=== PATIENT | male | born 1995 | race Caucasian/White ===

== ENCOUNTER 2019-09-05 00:39 | Inpatient (IN) | payer BC, OTHER ==
[~2019-09-05] VITALS: Ht 177.8 cm; Wt 95.3 kg
[2019-09-05 01:22] LABS: BASOPHILS % (AUTO) 0.3 % (0.0-2.0); EOSINOPHILS # (AUTO) 0.3 K/uL (0.0-0.7); EOSINOPHILS % (AUTO) 3.5 % (0.0-7.0); HEMATOCRIT 42.4 % (36.7-47.1); HEMOGLOBIN 14.7 g/dL (12.5-16.3); LYMPHOCYTES % (AUTO) 25.1 % (20.5-51.5); MEAN CORPUSCULAR HEMOGLOBIN 30.9 uug (23.8-33.4); MEAN CORPUSCULAR HGB CONC 35 g/dL (32.5-36.3); MEAN CORPUSCULAR VOLUME 89.1 fL (73.0-96.2); MONOCYTES # (AUTO) 0.7 K/uL (2.0-10.0); MONOCYTES % (AUTO) 8.3 % (0.0-11.0); NEUTROPHILS # (AUTO) 5.1 K/uL (1.8-8.9); NEUTROPHILS % (AUTO) 62.8 % (38.5-71.5); PLATELET COUNT (AUTO) 262 K/uL (152-348); RED BLOOD CELL COUNT(AUTO) 4.75 MIL/uL (4.06-5.63); WHITE BLOOD COUNT (AUTO) 8.1 K/uL (3.6-10.2)
[2019-09-05 01:26] LABS: CARBON DIOXIDE 31 mmol/L (21-32); CHLORIDE 105 mmol/L (98-107); CREATININE 0.9 mg/dL (0.6-1.3); GLUCOSE 96 mg/dL (74-106); POTASSIUM 3.9 mmol/L (3.5-5.1); UREA NITROGEN, BLOOD 12 mg/dL (7-18)
[2019-09-05] MEDS ORDERED: IOHEXOL 300MG/ML 100 ML INFUS..BTL ONE (01:28)
[2019-09-05] MEDS ORDERED: IV NORMAL SALINE 250 ML IV ONE (01:28)
[2019-09-05] MEDS ORDERED: SWABABLE VALVE TRANSFER SET EA MC ONE (01:28)
[2019-09-05 01:33] LABS: ALANINE AMINOTRANSFERASE 28 U/L (16-63); ALKALINE PHOSPHATASE 144 U/L (50-136); ASPARTATE AMINOTRANSFERASE 13 U/L (15-37); BILIRUBIN,TOTAL 0.5 mg/dL (0.2-1.0); LIPASE 95 U/L (73-393); TOTAL PROTEIN, SERUM 7.1 g/dL (6.4-8.2)
[2019-09-05 01:35] LABS: BILIRUBIN,DIRECT < 0.1 mg/dL (0.0-0.2)
[2019-09-05] MEDS ORDERED: SULFAMETH/TRIMETH 800/160 MG TABLET ONE (02:22)
[2019-09-05] MEDS ORDERED: CEFAZOLIN 1 G VIAL ONE (02:22)
[2019-09-05] MEDS ORDERED: CEFAZOLIN 2 G in IV DEXTROSE 5% 100 ML IV ONE (02:30)
[2019-09-05] MEDS ORDERED: SULFAMETH/TRIMETH 800/160 MG TABLET PO ONE (02:30)
[2019-09-05] MEDS ORDERED: VANCOMYCIN IV 1,000 MG in IV DEXTROSE 5% 250 ML IV ONE (02:30)
[2019-09-05] MEDS ORDERED: MAGNESIUM HYDROXIDE 30 ML LIQUID UDC PO PRN (02:45)
[2019-09-05] MEDS ORDERED: ACETAMINOPHEN 325 MG TABLET PO PRN (02:45)
[2019-09-05] MEDS ORDERED: Z GUARD REMEDY PASTE 57 GM TUBE TOP PRN (02:45)
[2019-09-05] MEDS ORDERED: ONDANSETRON 4 MG/2 ML VIAL IV PRN (02:45)
--- NOTE | 2019-09-05 02:46 | NUR ---
Pt. admitted to Med/Surg under care of Dr. Spaulding. Diagnosis: Abscess. Belongs List completed
[2019-09-05] MEDS ORDERED: VANCOMYCIN IV 200 ML ONE (02:55)
[2019-09-05] MEDS ORDERED: CLINDAMYCIN PHOSPHATE 900 MG/6 ML VIAL ONE (04:27)
[2019-09-05] MEDS: HYDROCODONE/APAP 5-325MG TABLET PO PRN (04:33)
--- NOTE | 2019-09-05 04:45 | NUR ---
RECEIVED PATIENT VIA GURNEY FROM ER. PATIENT IS A/O X4. C/O MILD PAIN IN LOWER ABDOMEN. REDNESS AND SLIGHT SWELLING NOTED. PATIENT GIVEN NORCO 1 TAB PO PRN FOR PAIN 11/11. VS WNL. H/L INTACT AND PATENT, NOTED TO RIGHT AC #20 GAUGE. NO RESP. DISTRESS NOTED. ORIENTED PATIENT TO ROOM AND CALL LIGHT. CALL LIGHT IN REACH. ALL NEEDS ATTENDED. WILL CONTINUE TO MONITOR AND ASSESS.
[2019-09-05 04:46] VITALS: BP 114/65
[2019-09-05] MEDS: CLINDAMYCIN PHOSPHATE IV 900 MG in IV DEXTROSE 5% 100 ML IV SCH ×3 (04:48→21:43)
[2019-09-05 11:57] VITALS: BP 113/63
[2019-09-05 15:39] VITALS: BP 111/65
--- NOTE | 2019-09-05 20:00 | NUR ---
AWAKE,ALERT X4 DR CARROLL SAW PT.FOR SURGERY IN AM. CONSENT SIGNED. NO COMPLAINTS MADE, NPO AFTER MIDNITE TOLD PATIENT,AWARE.
[2019-09-05 20:08] VITALS: BP 113/62
[2019-09-06] VITALS (7 sets, daily range): BP systolic 95–128; BP diastolic 50–82
[2019-09-06] MEDS: CLINDAMYCIN PHOSPHATE IV 900 MG in IV DEXTROSE 5% 100 ML IV SCH ×3 (05:40→21:11)
--- NOTE | 2019-09-06 06:08 | NUR ---
SLEPT AT LONG INTERVAL.NPO AFTER MIDNITE
[2019-09-06 06:14] LABS: BASOPHILS % (AUTO) 0.3 % (0.0-2.0); EOSINOPHILS # (AUTO) 0.3 K/uL (0.0-0.7); EOSINOPHILS % (AUTO) 4.6 % (0.0-7.0); HEMATOCRIT 42.3 % (36.7-47.1); HEMOGLOBIN 14.4 g/dL (12.5-16.3); LYMPHOCYTES # (AUTO) 1.7 K/uL (20.0-40.0); LYMPHOCYTES % (AUTO) 30.6 % (20.5-51.5); MEAN CORPUSCULAR HEMOGLOBIN 30.4 uug (23.8-33.4); MEAN CORPUSCULAR HGB CONC 34 g/dL (32.5-36.3); MEAN CORPUSCULAR VOLUME 89.3 fL (73.0-96.2); MONOCYTES # (AUTO) 0.5 K/uL (2.0-10.0); MONOCYTES % (AUTO) 9.4 % (0.0-11.0); NEUTROPHILS # (AUTO) 3.1 K/uL (1.8-8.9); NEUTROPHILS % (AUTO) 55.1 % (38.5-71.5); PLATELET COUNT (AUTO) 269 K/uL (152-348); RED BLOOD CELL COUNT(AUTO) 4.74 MIL/uL (4.06-5.63); WHITE BLOOD COUNT (AUTO) 5.6 K/uL (3.6-10.2)
[2019-09-06 06:42] LABS: PHOSPHOROUS 4.6 mg/dL (2.5-4.9); POTASSIUM 4.4 mmol/L (3.5-5.1)
[2019-09-06] MEDS ORDERED: POLYMYXIN B SULFATE 500,000 UNITS, BACITRACIN 50,000 UNITS, NORMAL SALINE 20 ML MC ONE ×3 (14:15)
[2019-09-06] MEDS ORDERED: BUPIVACAINE/EPI PF 0.25% 30 ML VIAL ONE (14:17)
[2019-09-06] MEDS ORDERED: MIDAZOLAM HCL 2 MG/2 ML VIAL ONE (15:32)
[2019-09-06] MEDS ORDERED: FENTANYL CITRATE 250 MCG/5 ML AMPUL ONE (15:33)
[2019-09-06] MEDS ORDERED: ROCURONIUM BROMIDE 50 MG/5 ML VIAL ONE (15:33)
--- NOTE | 2019-09-06 15:42 | NUR ---
pt went to or via bed for surgery
[2019-09-06] MEDS ORDERED: FENTANYL CITRATE 100 MCG/2 ML AMPUL ONE (17:03)
--- NOTE | 2019-09-06 18:02 | NUR ---
pt received from recovery room via bed in stable condition
--- NOTE | 2019-09-06 19:30 | NUR ---
RECEIVED PT IN NO ACUTE DISTRESS. IV INTACT. PT GIVEN INCENTIVE SPIROMETER. SAFETY AND COMFORT PROVIDED. WILL CONTINUE TO MONITOR.
[2019-09-07 00:13] VITALS: BP 100/53
[2019-09-07 05:25] VITALS: BP 96/52
[2019-09-07 05:48] LABS: BASOPHILS % (AUTO) 0.2 % (0.0-2.0); EOSINOPHILS # (AUTO) 0.2 K/uL (0.0-0.7); EOSINOPHILS % (AUTO) 2.7 % (0.0-7.0); HEMATOCRIT 43.2 % (36.7-47.1); HEMOGLOBIN 14.7 g/dL (12.5-16.3); LYMPHOCYTES # (AUTO) 1.6 K/uL (20.0-40.0); LYMPHOCYTES % (AUTO) 18.7 % (20.5-51.5); MEAN CORPUSCULAR HEMOGLOBIN 30.5 uug (23.8-33.4); MEAN CORPUSCULAR HGB CONC 34 g/dL (32.5-36.3); MEAN CORPUSCULAR VOLUME 89.6 fL (73.0-96.2); MONOCYTES # (AUTO) 0.7 K/uL (2.0-10.0); MONOCYTES % (AUTO) 7.8 % (0.0-11.0); NEUTROPHILS % (AUTO) 70.6 % (38.5-71.5); PLATELET COUNT (AUTO) 296 K/uL (152-348); RED BLOOD CELL COUNT(AUTO) 4.81 MIL/uL (4.06-5.63); WHITE BLOOD COUNT (AUTO) 8.5 K/uL (3.6-10.2)
[2019-09-07] MEDS: CLINDAMYCIN PHOSPHATE IV 900 MG in IV DEXTROSE 5% 100 ML IV SCH (05:53)
[2019-09-07] MEDS: HYDROCODONE/APAP 5-325MG TABLET PO PRN ×2 (06:04→10:15)
--- NOTE | 2019-09-07 06:16 | NUR ---
PT SLEPT INTERMITTENTLY. PT IN NO ACUTE DISTRESS. IV INTACT. PRESCRIBED MEDICATION GIVEN AND PT TOLERATED IT WELL. NORCO GIVEN AT 0604H. PT TOLERATED IT WELL. SAFETY AND COMFORT PROVIDED. WILL ENDORSE TO INCOMING NURSE FOR CONTINUITY OF CARE.
--- NOTE | 2019-09-07 07:30 | NUR ---
RECEIVED PATIENT IN BED AWAKE AND ALERT. NO S/S OF ACUTE DISTRESS NOTED AT THIS TIME. PATIENT WAS GIVEN PAIN MEDS EARLIER. KEPT CLEAN AND DRY AT ALL TIMES. CALL LIGHT WITHIN REACH, SAFETY AND COMFORT PROVIDED. CONTINUE TO MONITOR.
[2019-09-07 12:01] VITALS: BP 102/54
[2019-09-07] MEDS ORDERED: CEFAZOLIN 1 G VIAL IM ONE (13:24)
[2019-09-07] MEDS ORDERED: KETOROLAC TROMETHAMINE 30 MG INJ IM ONE (13:24)
[2019-09-07] MEDS ORDERED: METOCLOPRAMIDE HCL 10 MG/2 ML VIAL IV ONE (13:24)
[2019-09-07] MEDS ORDERED: EPHEDRINE SULFATE 50 MG/ML AMPUL IM ONE (13:24)
[2019-09-07] MEDS ORDERED: ROCURONIUM BROMIDE 50 MG/5 ML VIAL IV ONE (13:24)
[2019-09-07] MEDS ORDERED: SEVOFLURANE 250 ML BOTTLE IH ONE (13:24)
[2019-09-07] MEDS ORDERED: NEOSTIGMINE METHYLSULFATE 10 MG/10 ML VIAL IM ONE (13:24)
[2019-09-07] MEDS ORDERED: IV NORMAL SALINE 1000 ML BAG IV ONE ×2 (13:24)
[2019-09-07] MEDS ORDERED: GLYCOPYRROLATE 0.2 MG/ML VIAL IJ ONE (13:24)
[2019-09-07] MEDS ORDERED: PROPOFOL 200 MG/20 ML BOTTLE IV ONE (13:24)
[2019-09-07] MEDS ORDERED: LIDOCAINE-MPF 2% 5 ML VIAL IJ ONE (13:24)
--- NOTE | 2019-09-07 13:25 | NUR ---
RECEIVED PATIENT DISCHARGE ORDER TO HOME, DISCHARGE INSTRUCTION GIVEN AND MEDICATIONS PRESCRIPTION GIVEN WITH MEDICATION EXPLANATION . PATIENT VERBALIZED VERBALIZED UNDERSTANDING, BELONGINGS ACCOUNTED FOR AND SIGNED, IV AND ID BAND REMOVED. NO C/O PAIN AT THIS TIME, NO SOB NOTED. QUESTIONS AND CONCERNS ADDRESSED.
== END 2019-09-07 13:25 | disposition home or self-care (01) | DRG 354 ==
LOC: ER 01:05 → MEDSURG3 03:40
PROVIDERS: ADMIT Family Medicine; ATTEND Internal Medicine
PROC: 0WQF0ZZ Repair Abdominal Wall, Open Approach (ICD-10-PCS; principal; 2019-09-06)
DX: K42.1 Umbilical hernia with gangrene (principal); L03.311 Cellulitis of abdominal wall; L02.216 Cutaneous abscess of umbilicus
CPT/HCPCS: 36415; 83690; 83735; 84100; 85025; 87070; 87075; A4649; A4663; G0378; J0690; J1885; J2250; J2710; J2765; J3010; J3370; J3490; J7030; J7050; J7060; Q9967